=== PATIENT | male | born 1990 | race African-American/Black ===

== ENCOUNTER 2018-12-21 22:23 | Emergency (ER) | payer OTHER ==
[~2018-12-21] VITALS: Ht 182.9 cm; Wt 81.6 kg
[2018-12-22 01:40] VITALS: BP 110/71
--- NOTE | 2018-12-22 02:20 | PHYS DOC ---
Past Medical History Past Medical History: No Pertinent History Past Surgical History: No Surgical History Alcohol Use: None Drug Use: None Adult General Chief Complaint Chief Complaint: ANKLE PROBLEM HPI HPI Patient is a 28 year old M TWISTED ANKLE LANDED ON IT WRONG PLAYING BBALL ON SUNDAY TRIED TO AVOID A LITTLE GIRL PAIN SWELLING AND BRUISING INCREASING. MODERATE TO SEVRE WORSE WITH TIME RADIATES TO TOP OF FOOT. Review of Systems Review of Systems Constitutional: Denies fever or chills [] Eyes: Denies change in visual acuity, redness, or eye pain [] HENT: Denies nasal congestion or sore throat [] Respiratory: Denies cough or shortness of breath [] Cardiovascular: No additional information not addressed in HPI [] GI: Denies abdominal pain, nausea, vomiting, bloody stools or diarrhea [] : Denies dysuria or hematuria [] Musculoskeletal: Denies back pain or joint pain [] Integument: Denies rash or skin lesions [] Neurologic: Denies headache, focal weakness or sensory changes [] Endocrine: Denies polyuria or polydipsia [] All other systems were reviewed and found to be within normal limits, except as documented in this note. Allergies Allergies Allergies Coded Allergies Type Severity Reaction Last Updated Verified No Known Drug Allergies 05/19/13 No Physical Exam Physical Exam Constitutional: Well developed, well nourished, no acute distress, non-toxic appearance. [] HENT: Normocephalic, atraumatic, bilateral external ears normal, oropharynx moist, no oral exudates, nose normal. [] Eyes: PERRLA, EOMI, conjunctiva normal, no discharge. [] Abdomen: Skin: Back: No tenderness, no CVA tenderness. [] Extremities: ECCHYMOSIS AND TTP NOTED MEDIAL AND LATERAL MALL LEFT ANKLE WITH MOST SWELLING AT ATFL. MILD SWELLING DIFFUSELY IN FOOTBUT NO FOCAL TTP OF THE FIFTH METATARSAL Neurologic: Alert and oriented X 3, normal motor function, normal sensory function, no focal deficits noted. [] Psychologic: Affect normal, judgement normal, mood normal. [] Current Patient Data Vital Signs Vital Signs Date Time Temp Pulse Resp B/P (MAP) Pulse Ox O2 Delivery O2 Flow Rate FiO2 12/22/18 01:40 97.7 54 20 110/71 (84) 99 Room Air 97.7 EKG EKG [] Radiology/Procedures Radiology/Procedures [] Impressions: MY READ NEGATIVE ACUTE Course & Med Decision Making Course & Med Decision Making Pertinent Labs and Imaging studies reviewed. (See chart for details) []SPLINT APPLIED FOR PATIENT COMFORT, APPEARS TO BE MODERATELY SEVERE ANKLE SPRAIN XRAY NEG FOR FRACTURE BY MY READ. Anthony Disclaimer Dragon Disclaimer This electronic medical record was generated, in whole or in part, using a voice recognition dictation system. Departure Departure Impression: Primary Impression: Ankle sprain Disposition: 01 HOME, SELF-CARE Condition: STABLE Patient Instructions: Ankle Sprain, [id number] DENISSE SETH MD Dec 22, 2018 02:20
--- NOTE | 2018-12-22 05:43 | RAD ---
LEFT ANKLE AP, LATERAL, OBLIQUE Clinical Indication: Left ankle pain, twisted on December 19. Comparison: None. Findings: There is no acute fracture or dislocation. Mineralization is normal. Joint spaces are maintained. The ankle mortise is intact. Question small ankle joint effusion. There is no radiographically apparent soft tissue swelling. IMPRESSION: No acute fracture. Electronically signed by: Emmett Verma MD (12/22/2018 5:40 AM) [id number]
== END 2018-12-22 02:54 | disposition home or self-care (01) ==
LOC: ER 22:23
DX: S93.492A Sprain of other ligament of left ankle, initial encounter (principal); X50.0XXA Overexertion from strenuous movement or load, initial encounter; Y93.89 Activity, other specified; Y92.89 Other specified places as the place of occurrence of the external cause; Y99.8 Other external cause status
CPT/HCPCS: 29515; 73610; 99284